=== PATIENT | male | born 1970 | race Caucasian/White ===

== ENCOUNTER 2019-02-25 07:58 | Emergency (ER) | payer OTHER ==
[~2019-02-25] VITALS: Ht 165.1 cm; Wt 102.1 kg
[2019-02-25 08:01] VITALS: BP 120/95
--- NOTE | 2019-02-25 08:13 | NUR ---
Patient ambulated to bed 4 at this time.
--- NOTE | 2019-02-25 08:20 | NUR ---
48M C/O 02/[birth year], CONSTANT, DULL LLQ PAIN SINCE YESTERDAY, TOOK IBUPROFEN AND TYLENOL WITH MILD RELIEF. DENIES DYSURIA. DENIES RADIATION OF PAIN. 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 DENIES N/V/D, FEVER, CHILLS. NO CHANGES TO APPETITIE. BS ACTIVE IN ALL QUADRANTS. BEDRAILS UP X1, BED LOCKED AND LOW. ERMD TO EVAL PT. HX: HTN, DM, HIGH CHOLESTROL, SLEEP DISORDER TX: METFORMIN.AMBIEN,BACLOFEN,ZOLPIDEM,LORATADINE,FENOFIBRATE,SIMVASTATIN.
--- NOTE | 2019-02-25 08:23 | NUR ---
DR. CUELLAR AT BEDSIDE EVALUATING PATIENT.
--- NOTE | 2019-02-25 08:29 | NUR ---
MECHANICAL ENGINEERING ADVISOR HERE TO TAKE PT FOR CT ABD/PELVIS
--- NOTE | 2019-02-25 08:37 | NUR ---
PT BACK FROM CT VIA WHEELCHAIR. AMBULATORY TO BED WITHOUT ASSIST.
--- NOTE | 2019-02-25 08:51 | NUR ---
LINE DANCER AT BEDSIDE. LINE DANCER WILL TAKE URINE SAMPLE BACK TO LAB.
[2019-02-25 09:06] LABS: BASOPHILS # (AUTO) 0.1 K/uL (0.00-0.22); BASOPHILS % (AUTO) 0.5 % (0.0-2.0); EOSINOPHILS # (AUTO) 0.1 K/uL (0-0.4); EOSINOPHILS % (AUTO) 0.9 % (0.0-4.0); HEMATOCRIT 45.7 % (36-52); HEMOGLOBIN 15.4 g/dL (12.0-18.0); LYMPHOCYTES # (AUTO) 1.7 K/uL (2.0-11.5); LYMPHOCYTES % (AUTO) 15.7 % (20.5-51.1); MEAN CORPUSCULAR HEMOGLOBIN 33 pg (27-31); MEAN CORPUSCULAR HGB CONC 34 g/dL (33-37); MEAN CORPUSCULAR VOLUME 96.6 fL (80-94); MONOCYTES # (AUTO) 1.1 K/uL (0.8-1.0); MONOCYTES % (AUTO) 10.1 % (1.7-9.3); NEUTROPHILS % (AUTO) 72.8 % (42.2-75.2); PLATELET COUNT (AUTO) 257 K/uL (140-450); RED BLOOD CELL COUNT(AUTO) 4.72 MIL/uL (4.20-6.10)
[2019-02-25 09:10] LABS: APPEARANCE,URINE CLEAR (CLEAR); BILIRUBIN,URINE NEGATIVE (NEGATIVE); BLOOD, URINE TRACE-L (NEGATIVE); COLOR,URINE YELLOW (YELLOW); LEUKOCYTE ESTERASE ,URINE NEGATIVE (NEGATIVE); NITRITE, URINE NEGATIVE (NEGATIVE); PH,URINE 5.5 (5.0-9.0); UGLUCOSE NEGATIVE (NEGATIVE)
[2019-02-25 09:15] LABS: ANION GAP 15.4 (8-16); CARBON DIOXIDE 24.7 mmol/L (21-32); POTASSIUM 4.1 mmol/L (3.5-5.1)
[2019-02-25 09:20] LABS: ALBUMIN 3.7 g/dL (3.4-5.0); TOTAL BILIRUBIN 0.7 mg/dL (0.0-1.0)
[2019-02-25 09:39] LABS: CALCIUM OXALATE CRYSTALS,UR 0-10 /HPF (None Seen); RBC,URINE 0-5 /HPF (0-5); WBC,URINE 0-5 /HPF (0-5)
--- NOTE | 2019-02-25 09:39 | NUR ---
NOTIFIED DR. ROSSI THAT PT STATES LLQ PAIN IS STEADILY INCREASING, RATED 8/10 NOW.
--- NOTE | 2019-02-25 09:44 | NUR ---
DR. CUELLAR AT BEDSIDE WITH PATIENT.
[2019-02-25] MEDS ORDERED: KETOROLAC 60 MG/2 ML VIAL IM ONE (09:45)
[2019-02-25] MEDS ORDERED: HYDROcodone/APAP 5/325 MG 1 TAB TAB PO ONE (09:45)
[2019-02-25 10:21] VITALS: BP 123/81
--- NOTE | 2019-02-25 10:21 | NUR ---
Patient discharged with v/s stable. Written and verbal after care instructions given and explained. Patient alert, oriented and verbalized understanding of instructions. Ambulatory with steady gait. All questions addressed prior to discharge. ID band removed. Patient advised to follow up with PMD. Rx of NORCO, BACTRIM, FLAGYL given. Patient educated on indication of medication including possible reaction and side effects. Opportunity to ask questions provided and answered.
[2019-02-28] MEDS ORDERED: SIMV40TA1 PO (02:41)
[2019-02-28] MEDS ORDERED: BACL10TA4 PO (02:41)
[2019-02-28] MEDS ORDERED: TRI48 PO (02:41)
[2019-02-28] MEDS ORDERED: LISI5TAB18 PO (02:41)
[2019-02-28] MEDS ORDERED: METF500T PO (02:41)
[2019-02-28] MEDS ORDERED: LORA10TA19 PO (02:41)
[2019-03-04] MEDS ORDERED: METR250T2 PO (19:40)
[2019-03-04] MEDS ORDERED: CIPR500T4 PO (19:40)
== END 2019-02-25 10:21 | disposition home or self-care (01) ==
LOC: MED 07:58
DX: K57.92 Diverticulitis of intestine, part unspecified, without perforation or abscess without bleeding (principal); E11.9 Type 2 diabetes mellitus without complications; I10 Essential (primary) hypertension; Q63.1 Lobulated, fused and horseshoe kidney; E78.5 Hyperlipidemia, unspecified
CPT/HCPCS: 36415; 74176; 80053; 81001; 82948; 85025; 96372; 99284; J1885